=== PATIENT | female | born 1940 | race Caucasian/White ===

== ENCOUNTER 2016-06-07 10:44 | Inpatient (IN) | payer OTHER, BC ==
[2016-06-07 10:53] VITALS: BMI 32.4
--- NOTE | 2016-06-07 11:55 | PDOC ---
History of Present Illness - History of Present Illness Initial Comments: 06/07/16 12:17 The patient is a 76 year old female with a past medical hx of COPD, renal failure (currently on dialysis Thursday, , Thursday) who presents to the ED complaining of diarrhea for three days. She reports she received her dialysis treatment two days ago. The patient states she then had three episodes of diarrhea post dialysis treatment.. She notes she woke up yesterday and had two more episodes of diarrhea. She states she was going to go to her next dialysis treatment today, but she was sent to the ED for further evaluation of her diarrhea. She denies a hx of diverticulitis or diverticulosis. She reports she sleeps with oxygen and has a CPAP machine. She reports she feels weak and bloated. She denies fever, chills She denies SOB, chest pain She denies nausea, vomiting Allergies: Penicillin Social: No toxic habits reported Surgical: None reported PCP: Dr. Christie Bear Pigs Feet Finisher: Dr. Farhana Martinez <Isabell Veliz - Last Filed: 06/07/16 15:32> - General History Source: Patient Exam Limitations: No Limitations <Sheri Anna - Last Filed: 06/10/16 10:12> - General Chief Complaint: Diarrhea Stated Complaint: DIARRHEA (DIALYSIS) Time Seen by Provider: 06/07/16 11:03 Past History <Isabell Veliz - Last Filed: 06/07/16 15:32> - Past Medical History Anemia: Yes Asthma: No Cancer: No Cardiac Disorders: No CVA: No COPD: No (diffusion problem-o2 at night c-pap at night) CHF: No Dementia: No Diabetes: No Dialysis: Yes () GI Disorders: No Disorders: No HTN: Yes Hypercholesterolemia: Yes Liver Disease: No Seizures: No Thyroid Disease: Yes - Surgical History Abdominal Surgery: No Appendectomy: Yes (as a child) Cardiac Surgery: No Cholecystectomy: No Lung Surgery: No Neurologic Surgery: Yes (spinal fusion 2007) Orthopedic Surgery: Yes (bilateral knee replacements) - Psycho/Social/Smoking Cessation Hx Anxiety: No Suicidal Ideation: No Smoking History: Never smoked Have you smoked in the past 12 months: No Information on smoking cessation initiated: No Hx Alcohol Use: No Drug/Substance Use Hx: No Substance Use Type: None Hx Substance Use Treatment: No <Sheri Anna - Last Filed: 06/10/16 10:12> - Past Medical History Allergies/Adverse Reactions: Allergies Allergy/AdvReac Type Severity Reaction Status Date / Time Penicillins Allergy Severe Swelling Verified 06/07/16 10:52 celecoxib [From Celebrex] Allergy Mild Rash Verified 06/07/16 10:52 Home Medications: Ambulatory Orders Allopurinol [Zyloprim -] 100 mg PO HS 06/07/16 Ascorbic Acid [Vitamin C -] 500 mg PO DAILY 06/07/16 Brinzolamide/Brimonidine Tart [Simbrinza 1%-0.2% Eye Drops] 8 ml OP TID Diltiazem HCl [Cartia Xt] 120 mg PO ASDIR 06/07/16 Docusate Sodium [Colace Clear] 200 mg PO DAILY 06/07/16 Fluticasone Propionate [Flovent Diskus] 220 mcg IH BID 06/07/16 Folic Acid/Vit Bcomp,C [Dialyvite Tablet] 1 each PO DAILY 06/07/16 Levothyroxine [Synthroid -] 25 mcg PO DAILY 06/07/16 Omeprazole 20 mg PO DAILY 06/07/16 Pravastatin Sodium 20 mg PO HS 06/07/16 Pregabalin [Lyrica -] 150 mg PO BID 06/07/16 Sevelamer Carbonate [Renvela] 800 mg PO ASDIR 06/07/16 Tiotropium [place] [Spiriva] 1 inh PO DAILY 06/07/16 Review of Systems - Review of Systems Able to Perform ROS?: Yes Comments:: 06/07/16 12:18 GENERAL/CONSTITUTIONAL: +Weakness. No: fever, chills, loss of appetite. HEAD, EYES, EARS, NOSE AND THROAT: No: change in vision, ear pain, discharge, sore throat, throat swelling. CARDIOVASCULAR: No: chest pain, lightheadedness, palpitations, syncope RESPIRATORY: No: cough, shortness of breath, wheezing, hemoptysis, stridor. GASTROINTESTINAL: +Diarrhea, bloating. No: nausea, vomiting, abdominal cramping , rectal bleeding, constipation. GENITOURINARY: No: dysuria, hematuria, frequency, urgency, flank pain. MUSCULOSKELETAL: No: back pain, neck pain, joint pain, muscle swelling or pain SKIN: No: lesions, pallor, rash or easy bruising. NEUROLOGIC: No: headache, vertigo, paresthesias, weakness ENDOCRINE: No: unexplained weight gain or loss HEMATOLOGIC/LYMPHATIC: No: anemia, easy bleeding, swelling nodes <Isabell Veliz - Last Filed: 06/07/16 15:32> *Physical Exam - Vital Signs Last Vital Signs Temp Pulse Resp BP Pulse Ox 97.3 F L 81 20 109/57 97 06/07/16 10:49 06/07/16 10:49 06/07/16 10:49 06/07/16 10:49 06/07/16 10:49 - Physical Exam Comments: 06/07/16 12:18 GENERAL: The patient is in no acute distress. HEAD: Normal with no signs of trauma. EYES: PERRLA, EOMI, sclera anicteric, conjunctiva clear. ENT: Ears normal, nares patent, oropharynx clear without exudates. Moist mucous membranes. NECK: Normal range of motion, supple without lymphadenopathy, JVD, or masses. LUNGS: Breath sounds equal, clear to auscultation bilaterally. No wheezes, and no crackles. HEART:Regular rate and rhythm, normal S1 and S2 without murmur, rub or gallop. ABDOMEN: Soft, nontender, normoactive bowel sounds. No guarding, no rebound. EXTREMITIES: Normal range of motion, no edema. No clubbing or cyanosis. No erythema, or tenderness. NEUROLOGICAL: Cranial nerves II through XII grossly intact. Normal speech. No focal neurological deficits. MUSCULOSKELETAL: Back nontender to palpation, no CVA tenderness SKIN: Warm, Dry, normal turgor, no rashes or lesions noted <Isabell Veliz - Last Filed: 06/07/16 15:32> - Vital Signs Last Vital Signs Temp Pulse Resp BP Pulse Ox 97.3 F L 81 20 109/57 97 06/07/16 10:49 06/07/16 10:49 06/07/16 10:49 06/07/16 10:49 06/07/16 10:49 <Sheri Anna - Last Filed: 06/10/16 10:12> ED Treatment Course - LABORATORY CBC & Chemistry Diagram: 06/07/16 12:05 06/07/16 12:05 <Isabell Veliz - Last Filed: 06/07/16 15:32> - LABORATORY CBC & Chemistry Diagram: 06/07/16 12:05 06/07/16 12:05 <Sheri Anna - Last Filed: 06/10/16 10:12> Medical Decision Making - Medical Decision Making 06/07/16 11:54 A portion of this note was documented by scribe services under my direction. I have reviewed the details of the note, within reason, and agree with the documentation with the following case summary and management plan written by me. Nursing documentation reviewed and incorporated into medical decision making 06/07/16 15:11 This is a 76 yo F with a history of ESRD on HD T,R, S at [facility] Presenting to the ER with generalized weakness secondary to vomiting and diarrhea No fevers or chills No abdominal tenderness Pt was supposed to have dialysis today She called and informed the dialysis unit who told her not to come in for dialysis today Pt came to the ER due to generalized weakness 06/07/16 15:13 Laboratory Tests 06/07/16 06/07/16 12:05 12:05 WBC 7.6 Hgb 11.1 Hct 33.9 Plt Count 169 Neutrophils % 69.3 Lymphocytes % 14.0 D Potassium 3.5 BUN 43 H Creatinine 6.4 H D pt is one pound below her dry weight Pt seen in the ER by Dr Ramirez He states patient can be discharged to home Will discharge to care home Pt will follow up on Thursday for dialysis <Sheri Anna - Last Filed: 06/10/16 10:12> *DC/Admit/Observation/Transfer - Attestations Scribe Attestion: 06/07/16 12:18 Documentation prepared by Isabell Veliz, acting as medical leader for Sheri Anna MD/DO. <Isabell Veliz - Last Filed: 06/07/16 15:32> - Discharge Dispostion Admit: No <Sheri Anna - Last Filed: 06/10/16 10:12> Diagnosis at time of Disposition: Intractable vomiting Qualifiers: Vomiting type: unspecified Nausea presence: with nausea Qualified Code(s): R11.2 - Nausea with vomiting, unspecified Diarrhea Qualifiers: Diarrhea type: presumed infectious Qualified Code(s): A09 - Infectious gastroenteritis and colitis, unspecified - Discharge Dispostion Disposition: HOME Condition at time of disposition: Stable - Referrals
[2016-06-07 12:15] LABS: BASOPHIL 0.8 % (0-2.0); MCH 33.9 pg (25.7-33.7); MCHC 32.7 g/dl (32.0-36.0); MEAN CELL VOLUME 103.5 fl (80-96); MEAN PLT VOLUME 9.6 fl (7.5-11.1); NEUTROPHILS 69.3 % (42.8-82.8); PLATELET COUNT 169 K/MM3 (134-434); RDW 14.9 % (11.6-15.6); WHITE BLOOD COUNT 7.6 K/mm3 (4.0-10.0)
[2016-06-07 12:42] LABS: ALBUMIN 3.4 g/dl (3.4-5.0); BILIRUBIN,TOTAL 0.6 mg/dL (0.2-1.0); CALCIUM 8.5 mg/dL (8.5-10.1); CREATININE 6.4 mg/dL (0.55-1.02); TOT PROT 6.5 g/dl (6.4-8.2)
--- NOTE | 2016-06-07 15:22 | CONSULT ---
Consult - text type - Consultation Consultation Note: Renal Consult Pt seen and examined in the ED. No acute complaints. labs reviewed, no hyperkalemia or acidosis at this time. Weight is below her dry weight. No sob. Pt does not need dialysis today. Can be discharged and follow up at [facility] on thursday at 6pm. Full consult to follow James Polo DO
[2016-06-07 15:35] VITALS: BP 111/50; PULSE 77; TEMP 98.1
== END 2016-06-07 15:36 | disposition home or self-care (01) | DRG 391 ==
LOC: JER 10:44 → JERBED 13:08
PROVIDERS: ADMIT Specialist; ATTEND Specialist
DX: A09 Infectious gastroenteritis and colitis, unspecified (principal); N18.6 End stage renal disease; I12.0 Hypertensive chronic kidney disease with stage 5 chronic kidney disease or end stage renal disease; R11.2 Nausea with vomiting, unspecified; Z99.2 Dependence on renal dialysis; D64.9 Anemia, unspecified; E78.00 Pure hypercholesterolemia, unspecified
CPT/HCPCS: 36415; 80053; 85025; 99282-25

== ENCOUNTER 2019-05-23 03:06 | Emergency (ER) | payer OTHER, BC ==
--- NOTE | 2019-05-23 04:26 | PDOC ---
Attending Attestation - Resident Resident Name: Vamsi Rojas - ED Attending Attestation I have performed the following: I have examined & evaluated the patient, The case was reviewed & discussed with the resident, I agree w/resident's findings & plan - HPI HPI: 05/23/19 04:35 see resident hpi - Physicial Exam PE: 05/23/19 04:35 agree with resident exam - Medical Decision Making 05/23/19 04:35 79-year-old female status post mechanical fall with injury to the occipital parietal area CT scans of the head and cervical spine to assess for injury Will DC back to assisted living if negative Patient is awake alert recalls the entire event and is okay with plan
--- NOTE | 2019-05-23 04:40 | PDOC ---
History of Present Illness - General Stated Complaint: FALL Time Seen by Provider: 05/23/19 04:26 History Source: Patient Exam Limitations: No Limitations - History of Present Illness Initial Comments: 79 y/o F, pmh of copd, renal failure on dialysis tues/th/sat, brain stimulator, presents to the ED s/p fall. As per pt, she was attempting to grab something when she let go of her walker and fell on her back, and the back of her head hit the floor. She did not LOC or have prodromal symptoms. Denies f/c/n /v/d/sob, chest pain, numbness or tingling. 05/23/19 04:39 05/23/19 04:41 Is this a multiple visit Asthma Patient?: No Severity: mild Associated Symptoms: reports: denies symptoms. denies: chest pain, cough, diaphoresis, headaches, nausea/vomiting, shortness of breath, syncope, weakness Past History - Travel Traveled outside of the country in the last 30 days: No Close contact w/someone who was outside of country & ill: No - Past Medical History Allergies/Adverse Reactions: Allergies Allergy/AdvReac Type Severity Reaction Status Date / Time Penicillins Allergy Severe Swelling Verified 05/23/19 04:54 celecoxib [From Celebrex] Allergy Mild Rash Verified 05/23/19 04:54 Home Medications: Ambulatory Orders Allopurinol [Zyloprim -] 100 mg PO HS 06/07/16 Ascorbic Acid [Vitamin C -] 500 mg PO DAILY 06/07/16 Brinzolamide/Brimonidine Tart [Simbrinza 1%-0.2% Eye Drops] 8 ml OP TID Diltiazem HCl [Cartia Xt] 120 mg PO ASDIR 06/07/16 Docusate Sodium [Colace Clear] 200 mg PO DAILY 06/07/16 Fluticasone Propionate [Flovent Diskus] 220 mcg IH BID 06/07/16 Folic Acid/Vit B Complex and C [Dialyvite Tablet] 1 each PO DAILY 06/07/16 Levothyroxine [Synthroid -] 25 mcg PO DAILY 06/07/16 Omeprazole 20 mg PO DAILY 06/07/16 Pravastatin Sodium 20 mg PO HS 06/07/16 Pregabalin [Lyrica -] 150 mg PO BID 06/07/16 Sevelamer Carbonate [Renvela] 800 mg PO ASDIR 06/07/16 Tiotropium [place] [Spiriva] 1 inh PO DAILY 06/07/16 Anemia: Yes Asthma: No Cancer: No Cardiac Disorders: No CVA: No COPD: No (diffusion problem-o2 at night c-pap at night) CHF: No Dementia: No Diabetes: No Dialysis: Yes () GI Disorders: No Disorders: No HTN: Yes Hypercholesterolemia: Yes Liver Disease: No Seizures: No Thyroid Disease: Yes - Surgical History Abdominal Surgery: No Appendectomy: Yes (as a child) Cardiac Surgery: No Cholecystectomy: No Lung Surgery: No Neurologic Surgery: Yes (spinal fusion 2007) Orthopedic Surgery: Yes (bilateral knee replacements) - Psycho Social/Smoking Cessation Hx Smoking History: Never smoked Have you smoked in the past 12 months: No Hx Alcohol Use: No Drug/Substance Use Hx: No Substance Use Type: None Hx Substance Use Treatment: No Review of Systems - Review of Systems Able to Perform ROS?: Yes Is the patient limited Nepali proficient: No Constitutional: Yes: Symptoms Reported, Weight Stable. No: Chills, Fever HEENTM: Yes: Symptoms Reported. No: Eye Pain, Blurred Vision Respiratory: Yes: Symptoms reported. No: Cough, Shortness of Breath, Wheezing Cardiac (ROS): Yes: Symptoms Reported. No: Chest Pain, Chest Tightness ABD/GI: Yes: Symptoms Reported. No: Abdominal Distended, Constipated, Diarrhea , Nausea, Vomiting Neurological: Yes: Symptoms reported. No: Headache, Numbness *Physical Exam - Physical Exam General Appearance: Yes: Nourished, Appropriately Dressed HEENT: positive: EOMI, NATALIIA, Normal ENT Inspection, Pharynx Normal Neck: positive: Trachea midline, Normal Thyroid, Supple. negative: Lymphadenopathy (R), Lymphadenopathy (L) Respiratory/Chest: positive: Lungs Clear, Normal Breath Sounds Cardiovascular: positive: Regular Rhythm, Regular Rate, S1, S2. negative: Murmur, Gallop/S3, Gallop/S4 Vascular Pulses: Dorsalis-Pedis (R): 2+, Doralis-Pedis (L): 2+ Gastrointestinal/Abdominal: positive: Normal Bowel Sounds, Soft. negative: Distended, Guarding, Rebound Extremity: positive: Normal Capillary Refill, Normal Inspection Neurologic: positive: syrup mixer assistant II-XII NML intact, Fully Oriented, Alert, Normal Mood/ Affect Medical Decision Making - Medical Decision Making 79 y/o F, pmh of copd, renal failure on dialysis tues/thurs/sat, brain stimulator, presents to the ED s/p fall #s/p Fall 2/2 to mechanical pt reports loosing her balance when she let go of her walker CT head- No definite acute hemorrhage, mass or acute territorial infarct. Exam limited by artifact from bilateral thalamic stimulators. Age-related involutional changes. No skull fracture. Clear visualized paranasal sinuses. Visualized mastoid air cells clear CT spine-No acute fracture or traumatic malalignment. Bifid spinous process with nearby calcification incidentally noted at C6. Minimal spondylosis. monitor vitals Monitor neuro status 05/23/19 04:45 05/23/19 04:46 05/23/19 04:47 05/23/19 05:44 Discharge - Discharge Information Problems reviewed: Yes Clinical Impression/Diagnosis: Fall Qualifiers: Encounter type: initial encounter Qualified Code(s): W19.XXXA - Unspecified fall, initial encounter Condition: Improved Disposition: HOME - Admission No - Follow up/Referral Referrals: Christie Bear MD [Primary Care Provider] - - Patient Discharge Instructions Patient Printed Discharge Instructions: How to Prevent Falls Additional Instructions: You were seen in the emergency room due to a fall. While in the emergency room, we evaluated you with lab work, blood work and imaging of your spine and head. The results of your imaging were all normal. We monitored you overnight and ensured that you were stable to go home. Please make sure you are always using your walker when ambulating. Please take all your home medications as prescribed Please follow up with your primary care physician within 1 week Return to the emergency room if you experience worsening of your symptoms, nausea, vomiting, chest pain, loss of consciousness, weakness or any other worsening of your condition. - Post Discharge Activity
[2019-05-23 04:55] VITALS: BMI 33.3
[2019-05-23 06:39] VITALS: BP 111/54; PULSE 83; TEMP 98.3
== END 2019-05-23 06:40 | disposition home or self-care (01) ==
LOC: JER 03:06
DX: S09.8XXA Other specified injuries of head, initial encounter (principal); W18.39XA Other fall on same level, initial encounter; Y93.89 Activity, other specified; Y92.098 Other place in other non-institutional residence as the place of occurrence of the external cause; Y99.8 Other external cause status; Z99.89 Dependence on other enabling machines and devices; I12.0 Hypertensive chronic kidney disease with stage 5 chronic kidney disease or end stage renal disease; N18.6 End stage renal disease; N17.8 Other acute kidney failure; Z99.2 Dependence on renal dialysis; E78.00 Pure hypercholesterolemia, unspecified; D64.9 Anemia, unspecified; Z96.82 Presence of neurostimulator; Z96.653 Presence of artificial knee joint, bilateral; Z98.1 Arthrodesis status; Z88.0 Allergy status to penicillin; Z88.6 Allergy status to analgesic agent
CPT/HCPCS: 70450-TC; 72125-TC; 99282-25